=== PATIENT | female | born 1940 | race Caucasian/White ===

== ENCOUNTER 2018-03-20 10:34 | Day surgery (SDC) | payer OTHER ==
[2018-03-19 15:46] VITALS: BMI 34.1
--- NOTE | 2018-03-20 13:22 | HP ---
Satellite [facility] - Chief Complaint Chief Complaint: right cts - Past Medical History Allergies/Adverse Reactions: Allergies Allergy/AdvReac Type Severity Reaction Status Date / Time No Known Drug Allergies Allergy Verified 03/20/18 11:09 - Current Medications Current Medications: Home Medications Medication Instructions Recorded Acetaminophen [Extra Strength 500 mg PO Q6H PRN 03/19/18 Non-Aspirin] Albuterol Sulfate [Proair Hfa] 8.5 gm IH Q6H PRN 03/19/18 Aspirin Coated [Ecotrin -] 325 mg PO DAILY 03/19/18 Dexlansoprazole [Dexilant] 60 mg PO DAILY 03/19/18 Ergocalciferol (Vitamin D2) 50,000 unit PO WEEKLY 03/19/18 [Drisdol] Ezetimibe 10 mg PO DAILY 03/19/18 Gabapentin [Neurontin] 300 mg PO HS 03/19/18 Icosapent Ethyl [Vascepa] 1 gm PO BID 03/19/18 Isosorbide Mononitrate [Isosorbide 30 mg PO DAILY 03/19/18 Mononitrate ER] Loratadine [Claritin] 10 mg PO DAILY 03/19/18 Losartan 50Mg/Hctz 12.5MG [Hyzaar 1 tab PO DAILY 03/19/18 -] Metoprolol Succinate [Toprol Xl] 50 mg PO DAILY 03/19/18 Rosuvastatin Calcium 20 mg PO DAILY 03/19/18 Hydrocodone/Acetaminophen [[place] 1 each PO Q6H PRN #20 tablet MDD 4 03/20/18 5-325 Tablet] Satellite Physical Exam - Physical Examination Vital Signs: Vital Signs Period Temp Pulse Resp BP Sys/Morales Pulse Ox Last 24 Hr 97.5 F 55 16 139/74 98 General Appearance: Well Nourished, Well Developed, Alert & Oriented x3 ENT: Clear Lung: Normal air movement Heart: Regular rate & rhythm Extremities: Other (right hand- + tinels, + phalens, nvi) Neurological: Intact, Alert, Oriented Satellite Impression/Plan - Impression/Plan Impression: right cts Operative Procedure: right ctr Date to be Performed: 03/20/18
[2018-03-20] MEDS ORDERED: PROPOFOL 20 ML ONE ×2 (14:41→14:44)
[2018-03-20] MEDS ORDERED: MIDAZOLAM HCL 2 MG/2 ML SINGLE DOSE VIAL ONE (14:41)
[2018-03-20] MEDS ORDERED: ceFAZolin SODIUM 1 GM VIAL IVPB ONE (15:00)
[2018-03-20] MEDS ORDERED: KETOROLAC TROMETHAMINE 30 MG/1 ML VIAL ONE (15:19)
[2018-03-20] MEDS ORDERED: LIDOCAINE HCL 2% (50ML VIAL) INF ONE (15:19)
[2018-03-20] MEDS ORDERED: BUPIVACAINE HCL/PF 0.5% (5MG/ML) 10 ML VIAL IJ ONE (15:20)
--- NOTE | 2018-03-20 15:35 | OP ---
Operative Note - Note: Operative Date: 03/20/18 Pre-Operative Diagnosis: right CTS Operation: right CTR, tenosynovectomy Post-Operative Diagnosis: Same as Pre-op Surgeon: Richard Perez Anesthesiologist/CUBE MACHINE TENDER: Louie Easton Anesthesia: Local, MAC Specimens Removed: tenosynovium Estimated Blood Loss (mls): 0 Blood Volume Replaced (mls): 0 Fluid Volume Replaced (mls): 500 Operative Report Dictated: Yes
[2018-03-20 16:08] VITALS: TEMP 98
[2018-03-20 17:26] VITALS: BP 140/80; PULSE 60
--- NOTE | 2018-03-20 21:01 | SPEC ---
DATE OF OPERATION: 03/20/2018 PREOPERATIVE DIAGNOSIS: Right carpal tunnel syndrome. POSTOPERATIVE DIAGNOSIS: Right carpal tunnel syndrome. PROCEDURE: Right carpal tunnel, with tenosynovectomy. SURGEON: Richard Perez M.D. PRESENTATION DESIGNER: None. ANESTHESIOLOGIST: Louie Easton CRNA ANESTHESIA: MAC and local anesthesia. DRAINS: None. COMPLICATIONS: None. BLOOD LOSS: None. BLOOD GIVEN: None. FLUID REPLACEMENT: 500 mL Plasmalyte. SPECIMENS: . INDICATION: This patient is a 77-year-old female with the preoperative diagnosis of severe recurrent right carpal tunnel syndrome. After understanding the potential risks, complications, alternatives, benefits to surgery versus nonsurgical treatment, the patient elected to undergo this procedure. DESCRIPTION OF PROCEDURE: The patient was brought to the operating room, peripheral IV placed and intravenous sedation was given. One gram of intravenous Ancef was given. MAC anesthesia was induced. A tourniquet was applied to the right upper arm and the right upper extremity was prepped and draped in sterile fashion. The entire case was done under 3.8 loupe magnification. A marking pen was utilized to avis out a longitudinal incision in an already existing skin crease. Twenty mL of 0.5% Marcaine mixed with 1% Lidocaine was injected in and around the surgical incision. The right upper extremity was elevated, exsanguinated with an Esmarch bandage and the tourniquet inflated to 250 mmHg. A No. 15 scalpel blade was utilized to cut down through the skin. Subcutaneous hemostasis was achieved with the bipolar cautery. Dissection was done through the superficial palmar fascia. Self-retaining retractors were placed into the wound. Under direct visualization, the transverse carpal ligament was transected with a No. 15 scalpel blade, exposing the median nerve and the contents of the carpal tunnel. The distal and proximal extents of the release were completed with a Littler scissor and checked with irrigation and my small finger. They were seen to be complete. Limited dissection was done on the radial side of the median nerve and more extensive dissection was done on the ulnar side of the median nerve. The patients nerve was seen to be quite compressed by epineurium and therefore a limited epineurotomy was performed. A Ragnell retractor was used to gently retract the median nerve in a radial direction. The patient had a lot of tenosynovitis and therefore a tenosynovectomy was performed off all 9 flexor tendons. This was passed off the field as tenosynovium right wrist. The floor of the carpal tunnel was checked. There were no abnormal masses or ganglion cysts. The area was copiously irrigated and washed out and closure begun. Undyed 4-0 Vicryl was used to close the deep dermal layer. Final skin reapproximation was done with horizontal mattress 4-0 nylon sutures. The area was then washed and dried, covered with Xeroform, 4x4s, fluffs between the fingers, Webril and a 4-inch plaster roll was utilized to make a volar splint, which was then wrapped with Callie and Coban. The tourniquet was taken down after a total tourniquet time of 18 minutes. There were no complications during the case. The patient tolerated the procedure well and was brought to the ambulatory recovery room in stable condition. Denilson [id number]
--- NOTE | 2018-03-22 18:47 | PATH ---
Surgical Pathology Report Patient Name: KAVON [facility]. Rec. #: [id number] /Age/Gender: 1940 (Age: 77) / F Account: [id number] Location: [facility] SURGICAL Taken: 03/20/2018 Received: 03/21/2018 Reported: 03/22/2018 Physicians: Richard Perez M.D. Specimen(s) Received TENOSYNOVIUM TISSUE RIGHT WRIST Clinical History Carpel tunnel syndrome right wrist Final Diagnosis TENOSYNOVIAL TISSUE, RIGHT WRIST, EXCISION: TENOSYNOVIAL TISSUE WITH FIBROSIS AND DEGENERATIVE CHANGE. Electronically Signed Des Benavidez M.D. Gross Description Received in formalin, labeled "tenosynovial tissue, right wrist " are 3 tellez to yellow, irregular portions of soft tissue measuring 2.2 x 1 x 0.3cm in aggregate. The specimen is submitted in toto in one cassette. NACHO/03/21/2018 denzel/03/21/2018
== END 2018-03-20 17:27 | disposition home or self-care (01) ==
LOC: JASU-SURG 10:34
PROVIDERS: ATTEND Orthopaedic Surgery
PROC: 01N50ZZ Release Median Nerve, Open Approach (ICD-10-PCS; principal; 2018-03-20 12:00)
DX: G56.01 Carpal tunnel syndrome, right upper limb (principal)
CPT/HCPCS: 88304-TC; 94760